=== PATIENT | female | born 1945 | race African-American/Black ===

== ENCOUNTER 2021-02-02 13:36 | Emergency (ER) | payer OTHER, SELFPAY ==
--- NOTE | 2021-02-02 13:43 | ED.BACK ---
HPI - Back Pain/Injury General Chief Complaint: Back Pain/Injury Stated Complaint: back pain Time Seen by Provider: 02/02/21 13:43 Source: patient and RN notes reviewed Mode of arrival: ambulatory Limitations: no limitations History of Present Illness HPI Narrative: Natividad is a 75 year old female patient who ambulated into [facility] with c/o back and flank pain on left side. Patient denies any injury; she states she has a long history of back problems. Patient states increased frequency of urination, denies blood or other urinary symptoms. Patient states left flank pain x one week which is different then her normal back pain. Patient is currently taking tramadol and meloxicam. MD elicited complaint: back pain Pertinent past history: prior back pain Related Data Home Medications Medication Instructions Recorded Confirmed cyclobenzaprine 10 mg PO DAILY 02/02/21 02/02/21 dicyclomine 20 mg PO DAILY 02/02/21 02/02/21 fluticasone propionate 50 mcg INTRANASAL DAILY 02/02/21 02/02/21 hydrochlorothiazide 25 mg PO DAILY 02/02/21 02/02/21 losartan 100 mg PO DAILY 02/02/21 02/02/21 meclizine 25 mg PO DAILY 02/02/21 02/02/21 meloxicam 15 mg PO DAILY 02/02/21 02/02/21 metformin 500 mg PO DAILY 02/02/21 02/02/21 omeprazole 40 mg PO DAILY 02/02/21 02/02/21 ondansetron HCl 4 mg PO DAILY PRN 02/02/21 02/02/21 ranolazine 500 mg PO DAILY 02/02/21 02/02/21 tramadol 50 mg PO PRN PRN 02/02/21 02/02/21 Allergies Allergy/AdvReac Type Severity Reaction Status Date / Time No Known Allergies Allergy Unknown Verified 02/02/21 13:47 Review of Systems Review of Systems: CONSTITUTIONAL: Denies body aches, fever, chills, or sweats. EYES: Denies visual changes, redness, or discharge. ENT: Denies rhinorrhea, congestion, sore throat, or otalgia. CARDIOVASCULAR: Denies chest pain, palpitations, or edema. RESPIRATORY: Denies cough or dyspnea. GASTROINTESTINAL: Denies abdominal pain, nausea, vomiting, or diarrhea. GENITOURINARY: Denies dysuria or hematuria. SKIN: Denies rash, itching, or wounds. MUSCULOSKELETAL: Denies back pain, joint pain, or myalgia.+ left back and flank pain NEUROLOGIC: Denies headache, numbness, tingling, or weakness. PSYCH: Denies depression or anxiety. All systems reviewed & are unremarkable except as noted in HPI and below PMFSH Comments At time of signature, I have reviewed and agree with nursing past medical, surgical, social and family history unless otherwise noted. Please see nursing chart for further information. There is no relevant family history pertinent to the presenting complaint Exam Narrative: GENERAL: Well-appearing, well-nourished, and in no acute distress. HEAD: Normocephalic, atraumatic. EYES: EOMI. No redness or drainage. Conjunctivae normal. ENT: Mucous membranes pink and moist. Nares clear. No rhinorrhea. TMs normal bilaterally. Throat normal. Uvula midline. NECK: Normal AROM. Supple. No lymphadenopathy. CHEST: No respiratory distress. Clear to auscultation. HEART: Regular rate and rhythm. No murmur appreciated. Normal peripheral pulses. ABDOMEN: Soft, nontender, nondistended, normal active bowel sounds. MUSCULOSKELETAL: No bony tenderness; pain with palpation left flank, increased pain with forward flexion of spine and raising bilateral legs. paraspinal tenderness with palpation. neurovascular exam of extremities intact, normal bowel and bladder function. EXTREMITIES: Normal range of motion. No edema. SKIN: Warm, dry, no rash. Capillary refill normal. Normal skin turgor. NEURO: No focal deficits. Alert and oriented x3. Gait steady. PSYCH: Normal affect. No signs of depression or anxiety. Course Vital Signs Vital signs: Vital Signs Temperature 36.4 C 02/02/21 13:48 Pulse Rate 97 02/02/21 13:48 Respiratory Rate 16 02/02/21 13:48 Blood Pressure 159/74 H 02/02/21 13:48 Pulse Oximetry 99 02/02/21 13:48 Temperature 36.4 C 02/02/21 13:48 Pulse Rate 97 02/02/21
[2021-02-02 13:48] VITALS: BP 159/74; PULSE 97; RESP 16; TEMP 36.4; O2SAT 99
== END 2021-02-02 14:14 | disposition home or self-care (01) ==
PROVIDERS: Emergency Provider Nurse Practitioner Family; PCP Hospitalist
DX: S39.012A Strain of muscle, fascia and tendon of lower back, initial encounter (principal); X58.XXXA Exposure to other specified factors, initial encounter; E78.00 Pure hypercholesterolemia, unspecified; I10 Essential (primary) hypertension; K21.9 Gastro-esophageal reflux disease without esophagitis; E11.9 Type 2 diabetes mellitus without complications
CPT/HCPCS: 81003; 87086; 99203; G0463

== ENCOUNTER 2021-06-23 18:22 | Emergency (ER) | payer OTHER, SELFPAY ==
--- NOTE | ~2021-06-23 | CT_ITS ---
EXAMINATION: CT abdomen pelvis w con DATE: 06/23/2021 19:16 INDICATION: llq pain, nausea, vomiting, hx diverticulosis TECHNIQUE: Computed tomography (CT) of the abdomen and pelvis was performed with 100 mL Omnipaque-350 intravenous contrast. The dose-length product was 1067.67 mGy-cm. COMPARISON: 08/15/2015. FINDINGS: Lower thorax: Unremarkable. Steatosis Liver: Normal. Biliary/Gallbladder: Gallbladder is collapsed. No bile duct dilation. Spleen: Normal. Pancreas: No mass or duct dilation. Adrenals:No mass. Kidneys: No mass, stone, or hydronephrosis. GI tract: No small or large bowel dilation. Normal appendix. Extensive colonic diverticulosis. Segmen vaishnavi pericolonic inflammation at the proximal sigmoid in the left lower quadrant. Mesentery/Peritoneum: No ascites, mass, or free air. Retroperitoneum: No mass. Pelvis: Pelvic organs are within normal limits. Bones/Soft Tissues: Abdominal wall diastases. Small fat-containing of local hernia. Extensive degener ative changes in the spine. No acute osseous finding. Additional Findings: None. IMPRESSION: Acute uncomplicated sigmoid diverticulitis. Reviewed, dictated and finalized at [facility].
[2021-06-23 18:22] VITALS: BP 159/68; PULSE 88; RESP 16; TEMP 37.3; O2SAT 98
--- NOTE | 2021-06-23 18:37 | ED.ABDPAIN ---
HPI - Abdominal Pain General Chief Complaint: Abdominal Pain <Regina Robert PA-C - Last Filed: 06/23/21 20:03> Stated Complaint: abdominal pain <Regina Robert PA-C - Last Filed: 06/23/21 20:03> Time Seen by Provider: 06/23/21 18:25 <Regina Robert PA-C - Last Filed: 06/23/21 20:03> History of Present Illness HPI narrative: Patient is a 75-year-old female with a history of IBS who presents for evaluation of left lower quadrant pain x1 day. She states the pain is intermittent and crampy in nature, and is worse with certain positions. Denies aggravation after eating. Reports moderate relief after Tylenol and tramadol today. Additionally reports nausea, 4 episodes of vomiting nonbloody emesis today, and 1 episode of nonbloody diarrhea yesterday. She has script for zofran for chronic nausea, which alleviated her symptoms. Last PO was eggs and toast this morning. She denies any fevers, new or suspicious foods, sick contacts, dysuria, hematuria, back pain. She does report a history of diverticulosis on a previous colonoscopy, but her most recent study 4 years ago was reportedly clear. No history of abdominal surgeries. <Regina Robert PA-C - Last Filed: 06/23/21 20:03> Related Data Home Medications: Home Medications Medication Instructions Recorded Confirmed cyclobenzaprine 10 mg PO DAILY 02/02/21 02/02/21 dicyclomine 20 mg PO DAILY 02/02/21 02/02/21 fluticasone propionate 50 mcg INTRANASAL DAILY 02/02/21 02/02/21 hydrochlorothiazide 25 mg PO DAILY 02/02/21 02/02/21 losartan 100 mg PO DAILY 02/02/21 02/02/21 meclizine 25 mg PO DAILY 02/02/21 02/02/21 meloxicam 15 mg PO DAILY 02/02/21 02/02/21 metformin 500 mg PO DAILY 02/02/21 02/02/21 omeprazole 40 mg PO DAILY 02/02/21 02/02/21 ondansetron HCl 4 mg PO DAILY PRN 02/02/21 02/02/21 ranolazine 500 mg PO DAILY 02/02/21 02/02/21 tramadol 50 mg PO PRN PRN 02/02/21 02/02/21 baclofen 10 mg PO TID PRN 06/23/21 <ANG Grove Last Filed: 06/23/21 20:03> Allergies/Adverse Reactions: Allergies Allergy/AdvReac Type Severity Reaction Status Date / Time No Known Allergies Allergy Unknown Verified 06/23/21 18:41 <ANG Grove Last Filed: 06/23/21 20:03> Review of Systems Review of Systems: Gen: Denies fevers or chills Eyes: Denies eye pain or visual change ENT: Denies congestion Respiratory: Denies shortness of breath or cough CV: Denies chest pain or palpitations GI: Reports left lower quadrant pain, nausea, emesis and diarrhea : denies burning, urgency, frequency or hematuria Musculoskeletal: Denies back pain or muscle pain Neuro: Denies numbness, tingling, weakness or focal weakness Skin: Denies rash Except as documented, all other systems reviewed and negative <ANG Grove Last Filed: 06/23/21 20:03> All systems reviewed & are unremarkable except as noted in HPI and below <ANG Grove Last Filed: 06/23/21 20:03> Exam Narrative: APPEARANCE: Uncomfortable, but nontoxic appearing. EYES: EOMI. HEENT: Normocephalic, atraumatic, OMM RESPIRATORY: No respiratory distress Clear to auscultation bilaterally with no rhonchi wheezing or rales. CARDIOVASCULAR: Regular rate and rhythm without murmurs rubs or gallops. ABDOMINAL: Tender in left lower quadrant with some involuntary guarding. Normoactive bowel sounds. No CVA tenderness. MUSCULOSKELETAl: Moves all extremities. No clubbing, cyanosis or edema. NEURO: Awake and alert. Following commands, speech normal, no focal deficits SKIN: Warm, dry. No rashes lesions or abrasions PSYCHIATRIC: Normal affect/mood <ANG Grove Last Filed: 06/23/21 20:03> Course [employer]ISHER/PA Physician Supervision I did not see this patient but the care plan was discussed with me, labs and imaging reviewed. I agree with the documentation as above <Masoud Monroe MD - Last Filed: 06/23/21 20:36> Vital Signs
[2021-06-23 18:43] LABS: Basophils Absolute Auto 0.1 K/mm3 (0.0-0.1); Basophils Percent Auto 0.9 % (0.2-1.2); Eosinophils Absolute Auto 0.1 K/mm3 (0-0.3); Eosinophils Percent Auto 1.7 % (0-4.4); Hematocrit 43.1 % (37.0-47.0); Hemoglobin 14.5 g/dL (12.0-15.0); Immature Granulocyte Absolute 0.01 K/mm3 (0.00-0.031); Immature Granulocyte Percent A 0.1 % (0-0.5); Lymphocytes Absolute Auto 2.47 K/mm3 (0.9-3.2); Lymphocytes Percent Auto 30.2 % (18.3-44.2); Mean Corpuscular HGB Conc 33.6 g/dl (32-36); Mean Corpuscular Hemoglobin 29.1 pg (26-34); Mean Corpuscular Volume 86.5 fl (80-100); Mean Platelet Volume 10.8 fl (7.4-10.4); Monocytes Absolute Auto 0.5 K/mm3 (0.1-0.6); Neutrophils Percent Auto 61.1 % (45.5-73.1); Platelet Count Result 289 k/mm3 (150-375); Red Blood Count 4.98 M/mm3 (4.2-5.4); Red Cell Distribution Width 13.6 % (11.5-14.5); White Blood Count 8.2 K/mm3 (4.5-10.0)
[2021-06-23 18:53] LABS: Alanine Aminotransferase 30 U/L (4-35); Alkaline Phosphatase 66 U/L (38-126); Anion Gap 12 mmol/L (8-16); Aspartate Amino Transferase 34 U/L (14-36); Bilirubin,Total 0.4 mg/dL (0.2-1.3); Blood Urea Nitrogen 14 mg/dL (7-17); Calcium 9.8 mg/dL (8.4-10.2); Carbon Dioxide 28 mmol/L (22-30); Chloride 101 mmol/L (98-107); Estimated CRCL calculation 39 ml/min; Estimated Glomerular Filt Rate 59; Glucose 116 mg/dL (65-110); Lipase 226 U/L (23-300); Potassium 3.7 mmol/L (3.4-5.0); Sodium 141 mmol/L (137-145)
--- NOTE | 2021-06-23 19:03 | PC.NURSE ---
pT TAKEN TO CT SCAN
[2021-06-23 19:12] LABS: Appearance Urine Clear (Clear); Bilirubin Urine Negative (Negative); Blood Urine Trace-lysed (Negative); Color Urine Yellow (Yellow); Glucose Urine UA Negative (Negative); Ketones Urine Negative (Negative); Leukocyte Esterase Ur Negative LEU/UL (Negative); Nitrate Urine Negative (Negative); Protein Urine Negative (Negative); Urobilinogen Urine 0.2 mg/dL (<2.0); pH Urine 6.5 (5.0-9.0)
[2021-06-23 19:14] LABS: Mucus Urine Rare /lpf; RBC Urine 0-2 /hpf (0-2); Squamous Epithelial Cell Urine Occasional /hpf (Few); WBC Urine 0-3 /hpf
[2021-06-23 19:43] VITALS: BP 157/80; PULSE 87; RESP 16; O2SAT 98
[2021-06-23] MEDS: AMOXICILLIN/CLAVULANATE K 875-125 MG TAB 1 TABLET PO (20:07)
[2021-06-23] MEDS: DICYCLOMINE HCL INJ 20 MG/2 ML VIAL IM (20:07)
[2021-06-23 20:14] LABS: Add Urine Microscopic? YES
== END 2021-06-23 20:34 | disposition home or self-care (01) ==
PROVIDERS: Emergency Medicine; Emergency Provider Emergency Medicine; PCP Hospitalist
DX: K57.32 Diverticulitis of large intestine without perforation or abscess without bleeding (principal); K58.9 Irritable bowel syndrome, unspecified
CPT/HCPCS: 36415; 74177; 80053; 81001; 83690; 85025; 96372; 99284; A9270; J0500; Q9967

== ENCOUNTER 2022-01-01 15:39 | Emergency (ER) | payer OTHER, SELFPAY ==
[2022-01-01] VITALS (19 sets, daily range): BP systolic 125–147; BP diastolic 56–78; PULSE 79–96; RESP 10–24; TEMP 36.9; O2SAT 78–100
--- NOTE | ~2022-01-01 | CT_ITS ---
EXAMINATION: CT abdomen pelvis w con DATE: 01/01/2022 16:40 INDICATION: Right upper quadrant abdominal pain, nausea, vomiting, diarrhea TECHNIQUE: Computed tomography (CT) of the abdomen and pelvis was performed with 100 CC Omnipaque 350 intravenous contrast. Automated exposure control and iterative reconstruction technique were employe d. Exam dose: 709.36 mGy-cm total exam DLP. COMPARISON: 06/23/2021 CT abdomen pelvis FINDINGS: There is discoid atelectasis or scarring at the lung bases, more prominent in the right low er lobe. Normal heart size. No pericardial or pleural effusion. Hepatic steatosis. No hepatic, splenic, pancreatic, adrenal or renal space-occupying mass lesion is d etected. No urinary tract calculus or hydroureteronephrosis. There is atherosclerotic calcification of the abdominal aorta and atherosclerotic calcifications at t he origins of the celiac and superior mesenteric and particularly at the origins of both renal arteri es. No abdominal aortic aneurysm. No intraperitoneal or retroperitoneal or pelvic mass lesion or miky opathy or ascites. The urinary bladder, uterus and adnexal areas are unremarkable. There are numerous diverticula of the sigmoid and descending colon. No CT evidence of diverticulitis. Normal appendix. No bowel obstruction or intraperitoneal free air. Small fat-containing umbilical hernia into which a loop of small bowel partially DIPs without obstruc tion or strangulation. 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 There is degenerative change of the lumbar spi ne including prominent degenerative change at the apophyseal joints and multilevel degenerative disc disease, greatest at L4-5 and L5-S1. Degenerative change of the hip joints. No suspicious osteolytic or osteoblastic lesions are noted. IMPRESSION: Hepatic steatosis Diverticulosis of the left colon; no CT evidence of diverticulitis Normal appendix Degenerative changes of the thoracic and lumbar spine Reviewed, dictated and finalized at [facility]. Reviewed, dictated and finalized at [facility].
[2022-01-01 16:11] LABS: Basophils Percent Auto 0.2 % (0.2-1.2); Eosinophils Percent Auto 0.1 % (0-4.4); Hematocrit 42.7 % (37.0-47.0); Hemoglobin 14.4 g/dL (12.0-15.0); Immature Granulocyte Absolute 0.03 K/mm3 (0.00-0.031); Immature Granulocyte Percent A 0.3 % (0-0.5); Lymphocytes Absolute Auto 1.25 K/mm3 (0.9-3.2); Lymphocytes Percent Auto 12.6 % (18.3-44.2); Mean Corpuscular HGB Conc 33.7 g/dl (32-36); Mean Corpuscular Hemoglobin 29.4 pg (26-34); Mean Corpuscular Volume 87.1 fl (80-100); Mean Platelet Volume 10.2 fl (7.4-10.4); Monocytes Absolute Auto 0.5 K/mm3 (0.1-0.6); Neutrophils Absolute Auto 8.1 K/mm3 (1.3-6.7); Neutrophils Percent Auto 81.8 % (45.5-73.1); Platelet Count Result 286 k/mm3 (150-375); Red Cell Distribution Width 13.8 % (11.5-14.5)
[2022-01-01] MEDS: SODIUM CHLORIDE 0.9% IV 1,000 ML 999 ML IV CONT (16:21)
[2022-01-01] MEDS: ONDANSETRON INJ 4 MG/2 ML VIAL IV PUSH (16:21)
[2022-01-01 16:22] LABS: Alanine Aminotransferase 26 U/L (6-35); Albumin Level 4.8 g/dL (3.5-5.1); Alkaline Phosphatase 59 U/L (38-126); Anion Gap 14 mmol/L (8-16); Aspartate Amino Transferase 26 U/L (14-36); Bilirubin,Total 0.7 mg/dL (0.2-1.3); Blood Urea Nitrogen 25 mg/dL (7-17); Calcium 9.6 mg/dL (8.4-10.2); Carbon Dioxide 26 mmol/L (22-30); Chloride 101 mmol/L (98-107); Estimated CRCL calculation 34 ml/min; Estimated Glomerular Filt Rate 53; Glucose 101 mg/dL (65-110); Lipase 182 U/L (23-300); Potassium 3.8 mmol/L (3.4-5.0); Sodium 141 mmol/L (137-145)
--- NOTE | 2022-01-01 16:29 | ED.NAVMDI ---
HPI - Nausea/Vomiting/Diarrhea General Chief complaint: Nausea/Vomiting/Diarrhea Stated complaint: vomiting Time Seen by Provider: 01/01/22 15:52 History of Present Illness HPI Narrative: 76-year-old female history of IBS, hypertension, started diabetes, GERD presents to the emergency room for evaluation of sudden onset of nausea vomiting and diarrhea that began 5:00 this morning. Patient reports multiple episodes of nonbilious nonbloody vomiting, as well as multiple episodes of nonmelanotic diarrhea. Patient also endorsing diffuse abdominal cramping and discomfort. Patient states she was scheduled to have a right upper quadrant ultrasound to evaluate her gallbladder earlier today but had to cancel. Patient denies fever. Related Data Home Medications Medication Instructions Recorded Confirmed cyclobenzaprine 10 mg tablet 10 mg PO DAILY 02/02/21 02/02/21 dicyclomine 20 mg tablet 20 mg PO DAILY 02/02/21 02/02/21 fluticasone propionate 50 50 mcg intranasal DAILY 02/02/21 02/02/21 mcg/actuation nasal spray,suspension hydrochlorothiazide 25 mg tablet 25 mg PO DAILY 02/02/21 02/02/21 losartan 100 mg tablet 100 mg PO DAILY 02/02/21 02/02/21 meclizine 25 mg tablet 25 mg PO DAILY 02/02/21 02/02/21 meloxicam 15 mg tablet 15 mg PO DAILY 02/02/21 02/02/21 metformin 500 mg tablet 500 mg PO DAILY 02/02/21 02/02/21 omeprazole 40 mg capsule,delayed 40 mg PO DAILY 02/02/21 02/02/21 release ondansetron HCl 4 mg tablet 4 mg PO DAILY PRN Nausea 02/02/21 02/02/21 ranolazine 500 mg tablet,extended 500 mg PO DAILY 02/02/21 02/02/21 release,12 hr tramadol 50 mg tablet 50 mg PO PRN PRN Pain, Moderate 02/02/21 02/02/21 baclofen 10 mg tablet 10 mg PO TID PRN Pain 06/23/21 Allergies Allergy/AdvReac Type Severity Reaction Status Date / Time No Known Allergies Allergy Unknown Verified 01/01/22 15:45 Review of Systems Review of Systems: CONSTITUTIONAL: Denies fever, chills, or sweats. EYES: Denies visual changes, redness, or discharge. ENT: Denies rhinorrhea, congestion, sore throat, or otalgia. CARDIOVASCULAR: Denies chest pain, palpitations, or edema. RESPIRATORY: Denies cough or dyspnea. GASTROINTESTINAL: Reports abdominal pain, nausea, vomiting, or diarrhea. GENITOURINARY: Denies dysuria or hematuria. SKIN: Denies rash or itching. MUSCULOSKELETAL: Denies back pain, joint pain, or myalgia. NEUROLOGIC: Denies headache, numbness, dizziness, or weakness. PSYCHIATRIC: Denies anxiety or depression. Exam Narrative: GENERAL: Well-appearing, well-nourished, no physical limitations, and in no acute distress. HEAD: Normocephalic, atraumatic. EYES: Conjunctivae normal, PERRLA and EOMI. ENT: Mucous membranes dry NECK: Supple. CHEST: Clear to auscultation. No respiratory distress. No wheezes rales or rhonchi. No tenderness. HEART: Regular rate and rhythm. No murmur heard. Normal peripheral pulses. ABDOMEN: Soft, diffuse tenderness, nondistended, normal active bowel sounds. BACK: No CVA tenderness EXTREMITIES: Normal range of motion. No edema. No clubbing or cyanosis SKIN: Warm, dry, no rash. No noted wounds NEURO: No focal deficits. Alert and oriented x3. MAEW. CN's II-XI intact bilaterally, normal gait PSYCH: Cooperative. Normal mood and affect. Course Vital Signs Vital signs: Vital Signs Temperature 36.9 C 01/01/22 15:42 Pulse Rate 96 01/01/22 15:42 Respiratory Rate 18 01/01/22 15:42 Blood Pressure 144/77 H 01/01/22 15:42 Pulse Oximetry 100 01/01/22 15:42 Oxygen Delivery Room Air 01/01/22 15:42 Temperature 36.9 C 01/01/22 15:42 Pulse Rate 96 01/01/22 15:42 Respiratory Rate 18 01/01/22 15:42 Blood Pressure 144/77 H 01/01/22 15:42 Pulse Oximetry 100 01/01/22 15:42 Oxygen Delivery Room Air 01/01/22 15:42 MDM - Nausea/Vomiting/Diarrhea Lab Data Result diagrams: 01/01/22 16:06 01/01/22 16:06 Labs: Lab Results 01/01/22 01/01/22 01/01/22 Range/Units
[2022-01-01] MEDS: DICYCLOMINE HCL INJ 20 MG/2 ML VIAL IM (16:58)
[2022-01-01 18:04] LABS: Add Urine Microscopic? YES; Appearance Urine Clear (Clear); Bilirubin Urine Negative (Negative); Blood Urine Negative (Negative); Color Urine Yellow (Yellow); Glucose Urine UA Negative (Negative); Ketones Urine Trace mg/dL (Negative); Leukocyte Esterase Ur Negative LEU/UL (Negative); Mucus Urine Moderate /lpf; Nitrate Urine Negative (Negative); Protein Urine Negative (Negative); Squamous Epithelial Cell Urine Rare /hpf (Few); Urobilinogen Urine Negative mg/dL (<2.0); WBC Urine 0-3 /hpf
[2022-01-01 18:05] LABS: Specific Grav Ur > 1.060 (1.001-1.035)
== END 2022-01-01 18:31 | disposition home or self-care (01) ==
PROVIDERS: Emergency Provider Nurse Practitioner Family; PCP Hospitalist
DX: A05.9 Bacterial foodborne intoxication, unspecified (principal); Z79.84 Long term (current) use of oral hypoglycemic drugs
CPT/HCPCS: 36415; 51701; 74177; 80053; 81001; 83690; 85025; 96361; 96372; 96374; 99284; J0500; J2405; J7030; Q9967